=== PATIENT | male | born 1935 | race Caucasian/White ===

== ENCOUNTER 2018-02-28 09:52 | Day surgery (SDC) | payer MEDICARE ==
[~2018-02-28 09:52] MED LIST: CEFAZOLIN 1 GM INJ
[2018-02-28] MEDS ORDERED: CEFAZOLIN 1 GM/50 ML (PMX) 50 ML IVPB (10:00)
[2018-02-28] MEDS ORDERED: SOD CHLORIDE 0.45% 1,000 ML IV (10:00)
[2018-02-28 10:33] LABS: ADD MAN DIFF? NO
[2018-02-28 10:35] LABS: BASOPHILS % 0.3 % (0.0-2.0); EOSINOPHILS % 0.5 % (0.0-7.0); HEMOGLOBIN 12.7 g/dl (14.0-18.0); LYMPHOCYTES # 1.6 10^3/ul (0.8-2.9); LYMPHOCYTES % 27.2 % (15.0-51.0); MEAN CORPUSCULAR HGB CONC 32.6 g/dl (32.0-37.0); MEAN PLATELET VOLUME 11.3 fl (7.4-10.4); MONOCYTES % 16.8 % (0.0-11.0); NEUTROPHIL # 3.2 10^3/ul (1.6-7.5); NEUTROPHILS % 52.9 % (39.0-77.0); PLATELET COUNT 143 10^3/UL (140-415); RED BLOOD COUNT 4.38 10^6/ul (4.70-6.10); RED CELL DISTRIBUTION WIDTH 15.9 % (11.5-14.5)
[2018-02-28 10:53] LABS: CHOLESTEROL 137 mg/dl (100-200)
[2018-02-28 10:53] LABS: CHOL/HDL RATIO 3.2 RATIO; HDL CHOLESTEROL 42 mg/dl (31-75); LDL CHOLESTEROL,CALCULATED 71 mg/dl; TRIGLYCERIDES 121 mg/dl (0-149)
[2018-02-28 10:54] LABS: INR 1.49; PROTIME 18.3 Sec (11.9-14.9); PT RATIO 1.4
[2018-02-28 10:55] LABS: PARTIAL THROMBOPLASTIN TIME 32.5 Sec (25.0-35.0)
[2018-02-28] MEDS ORDERED: LIDOCAINE 2% (SDV) 5 ML INJ (11:46)
[2018-02-28] MEDS ORDERED: ROCURONIUM 50 MG INJ (11:46)
[2018-02-28] MEDS ORDERED: PROPOFOL 20 ML (11:46)
[2018-02-28] MEDS ORDERED: GLYCOPYRROLATE 0.4 MG INJ (11:46)
[2018-02-28] MEDS ORDERED: MIDAZOLAM 1 MG/ML 2 ML INJ (11:46)
[2018-02-28] MEDS ORDERED: NEOSTIGMINE 3 MG/3 ML SYRINGE (11:46)
[2018-02-28] MEDS ORDERED: FENTAnyl 50 MCG/ML VIAL (11:50)
[2018-02-28] MEDS ORDERED: DIAZEPAM 5 MG TAB PO (12:00)
[2018-02-28 12:17] LABS: ANION GAP 10 (8-16); BLOOD UREA NITROGEN 15 mg/dl (7-20); CALCIUM 8.9 mg/dl (8.4-10.2); CARBON DIOXIDE 23 mmol/L (21-31); CHLORIDE 117 mmol/L (97-110); CREATININE 1.08 mg/dl (0.61-1.24); GLUCOSE 113 mg/dl (70-220); POTASSIUM 4.3 mmol/L (3.5-5.1); SODIUM 146 mmol/L (135-144)
[2018-02-28] MEDS ORDERED: DEXAMETHASONE 4 MG/ML 1 ML INJ (12:28)
[2018-02-28] MEDS ORDERED: ONDANSETRON 4 MG INJ (12:28)
[2018-02-28] MEDS: LIDOCAINE 1% (MPF) 30 ML INJ (12:50)
[2018-02-28] MEDS: BUPIVACAINE 0.25% (MPF) 30 ML INJ (12:50)
[2018-02-28] MEDS: POLYMYXIN/BACITRACIN 1L IRRIG (12:50)
[2018-02-28] MEDS ORDERED: morphine 2 MG INJ IV (13:30)
[2018-02-28] MEDS: CEFAZOLIN 1 GM/50 ML (PMX) 50 ML IVPB (16:01)
== END 2018-02-28 17:00 | disposition home or self-care (01) ==
LOC: SDS 09:52
DX: I49.5 Sick sinus syndrome (principal); Z45.010 Encounter for checking and testing of cardiac pacemaker pulse generator [battery]; I25.10 Atherosclerotic heart disease of native coronary artery without angina pectoris; I10 Essential (primary) hypertension; E03.9 Hypothyroidism, unspecified
CPT/HCPCS: 33228; 71045; 80048; 80061; 85025; 85610; 85730; 88300; 93005